=== PATIENT | female | born 1960 | race American Indian/Alaskan Native ===

== ENCOUNTER 2017-06-04 16:33 | Emergency (ER) | payer BC ==
[2017-06-04 16:41] VITALS: BP 171/91
--- NOTE | 2017-06-04 18:39 | Emergency Department Report ---
Eye Injury/Foreign Body - HPI Eye Location: Left Eye Symptoms: Eye Pain: Yes, Blurred Vision: No, Eye Redness: Yes, Grinding/ Hammering Metal: No, Used Eye Protection: No, Contact Lens Use: No, Recalls Injury: No, Photophobia: No Other History: 56-year-old female past medical history diabetes presents with complaint of about 1 week+ of stye to left eye. Patient denies any significant eye discharge but does state that she has slight discomfort at lid. Started using warm compresses. Patient denies any significant blurry vision headache fevers chills or significant discharge from eye. ED Review of Systems ROS: Stated complaint: STYE L EYE POSS INFECTION Other details as noted in HPI Constitutional: denies: chills, fever Eyes: eye pain (left lower eyelid swelling). denies: eye discharge, vision change ENT: denies: ear pain, throat pain Respiratory: denies: cough, shortness of breath, wheezing Cardiovascular: denies: chest pain, palpitations Endocrine: no symptoms reported Gastrointestinal: denies: abdominal pain, nausea, diarrhea Genitourinary: denies: urgency, dysuria, discharge Musculoskeletal: denies: back pain, joint swelling, arthralgia Skin: denies: rash, lesions Neurological: denies: headache, weakness, paresthesias Psychiatric: denies: anxiety, depression Hematological/Lymphatic: denies: easy bleeding, easy bruising ED Past Medical Hx - Past Medical History Hx Hypertension: Yes Hx Diabetes: Yes Hx Arthritis: Yes Hx Asthma: Yes Additional medical history: high cholesterol. bulging disc L4 & L5. degenerative disc disease - Surgical History Additional Surgical History: right and left knee surgery - Social History Smoking Status: Never Smoker Substance Use Type: None - Medications Home Medications: Home Medications Medication Instructions Recorded Confirmed Last Taken Type Acetaminophen/Codeine [Tylenol #3] 1 tab PO Q6H PRN #20 tab 10/06/15 Unknown Rx Erythromycin [Erythromycin Ophth 1 applic OP QID #1 tube 06/04/17 Unknown Rx Oint] Naproxen 500 mg PO BID PRN #30 tablet 06/04/17 Unknown Rx Eye Injury Exam - Exam General: Vital signs noted. No distress. Alert and acting appropriately. - Visual Acuity Bilateral Vision Acuity Degree: 20/30 Eye Exam: Left Injection, Left Chemosis, Neither EOMI, Neither Fluorescein Uptake Exam: Vision 20/30 bilaterally, left eye 20/30, right eye 20/25 ED Course Vital Signs 06/04/17 16:39 Temperature 98.4 F Pulse Rate 90 Respiratory 18 Rate Blood Pressure 171/91 O2 Sat by Pulse 99 Oximetry ED Medical Decision Making - Medical Decision Making A/P: Hordeolum left eye lower lid 1-erythromycin ointment, Motrin when necessary 2-follow-up with ophthalmology patient given referrals 3-vision is clinically intact on exam 4-artificial tears Critical care attestation.: If time is entered above; I have spent that time in minutes in the direct care of this critically ill patient, excluding procedure time. ED Disposition Clinical Impression: Hordeolum internum left lower eyelid Disposition: TO HOME OR SELFCARE Is pt being admited?: No Does the pt Need Aspirin: No Condition: Stable Instructions: Esther (ED) Prescriptions: Erythromycin [Erythromycin Ophth Oint] 1 applic OP QID #1 tube Naproxen 500 mg PO BID PRN #30 tablet PRN Reason: Pain Referrals: NEREIDA MIMS MD [Staff Physician] - 3-5 Days MING SMITH MD [Staff Physician] - 3-5 Days Time of Disposition: 18:36
== END 2017-06-04 18:50 | disposition home or self-care (01) ==
LOC: ED 16:33
DX: H00.015 Hordeolum externum left lower eyelid (principal); I10 Essential (primary) hypertension; E11.9 Type 2 diabetes mellitus without complications; M19.90 Unspecified osteoarthritis, unspecified site
CPT/HCPCS: 99282

== ENCOUNTER 2017-08-28 14:44 | Outpatient (CLI) | payer BC ==
--- NOTE | 2017-08-29 08:02 | Magnetic Resonance Report ---
MRI UPPER EXTREMITY JOINT LEFT WITHOUT CONTRAST HISTORY: Pain in left shoulder. TECHNIQUE: Multiple T1 and T2-weighted images with and without fat suppression. No IV gadolinium was administered. COMPARISON: None at this facility. FINDINGS: The bone marrow signal is within normal limits. There is no evidence for fracture or or bone lesion. Mild to moderate hypertrophic osteoarthritic changes are identified at the acromioclavicular joint. Impingement could be considered. Severe tendinopathy, or more likely a longitudinal tear, is identified in the intra-articular portion of the long head of the biceps tendon. No evidence for rupture. The longitudinal tear extends to the junction of the tendon on the superior labrum. There is suggestion of a type IV SLAP lesion on series 5, image 12. The remainder of the labrum is unremarkable. The insertion of the infraspinatus tendon on the proximal humerus is abnormal with fluid signal present. This appears to represent a greater than 50% thickness articular surface tear at the insertion site on the proximal humerus. There may be a pin hole full-thickness component to this defect. This is best demonstrated on series 5, images 6-7. There is mild thickening and increased intrinsic signal in the distal supraspinatus tendon and distal subscapularis tendon consistent with mild tendinosis. No tear is identified. The teres minor is normal. There is a small joint effusion with trace fluid in the tendon sheath of the biceps tendon and subacromial/subdeltoid bursa. IMPRESSION: Longitudinal tear in the horizontal portion of the biceps tendon. Question type IV SLAP lesion. Greater than 50% thickness tear in the distal infraspinatus tendon at its insertion site. I suspect there is a pin hole full-thickness component to this tear. Mild tendinosis of the distal supraspinatus and subscapularis tendons. Acromioclavicular osteoarthritis. Small joint effusion and bursal fluid.
== END 2017-08-28 14:45 | disposition home or self-care (01) ==
LOC: MRI 14:44
PROVIDERS: ATTEND Orthopaedic Surgery
DX: S46.912A Strain of unspecified muscle, fascia and tendon at shoulder and upper arm level, left arm, initial encounter (principal); M75.102 Unspecified rotator cuff tear or rupture of left shoulder, not specified as traumatic; M19.012 Primary osteoarthritis, left shoulder; M75.42 Impingement syndrome of left shoulder; M75.82 Other shoulder lesions, left shoulder; X58.XXXA Exposure to other specified factors, initial encounter; Y93.89 Activity, other specified; Y92.89 Other specified places as the place of occurrence of the external cause; Y99.8 Other external cause status

== ENCOUNTER 2017-10-06 07:36 | Outpatient (CLI) | payer BC ==
[2017-10-06 08:08] LABS: Alanine Aminotransferase 15 units/L (7-56); Albumin 4.4 g/dL (3.9-5); BUN/Creatinine Ratio 24; Blood Urea Nitrogen 12 mg/dL (7-17); Hemolysis Index 2
[2017-10-06 08:28] LABS: Basophils # (Auto) 0.1 K/mm3 (0.0-0.1); Basophils % (Auto) 0.5 % (0.0-1.8); Eosinophils # (Auto) 0.2 K/mm3 (0.0-0.4); Eosinophils % (Auto) 1.2 % (0.0-4.3); Hemoglobin 12.5 gm/dl (10.1-14.3); Lymphocytes # (Auto) 3.9 K/mm3 (1.2-5.4); Lymphocytes % (Auto) 31.7 % (13.4-35.0); Mean Corpuscular HGB Conc 32 % (30-34); Mean Corpuscular Hemoglobin 26 pg (28-32); Mean Corpuscular Volume 80 fl (79-97); Monocytes # (Auto) 0.5 K/mm3 (0.0-0.8); Monocytes % (Auto) 3.9 % (0.0-7.3); Platelet Count 364 K/mm3 (140-440); Red Cell Distribution Width 15.8 % (13.2-15.2)
== END 2017-10-06 07:37 | disposition home or self-care (01) ==
LOC: LAB 07:36
PROVIDERS: ATTEND Internal Medicine
DX: E11.618 Type 2 diabetes mellitus with other diabetic arthropathy (principal); E11.65 Type 2 diabetes mellitus with hyperglycemia; I10 Essential (primary) hypertension; J45.909 Unspecified asthma, uncomplicated
CPT/HCPCS: 36415; 80053; 83036; 85025

== ENCOUNTER 2017-10-09 08:48 | Outpatient (CLI) | payer BC | END 2017-10-09 08:49 | disposition home or self-care (01) | LOC: CARD 08:48 | PROVIDERS: ATTEND Orthopaedic Surgery | DX: Z01.818 Encounter for other preprocedural examination (principal) | CPT/HCPCS: 93005; 93010 ==

== ENCOUNTER 2017-10-18 09:22 | Day surgery (SDC) | payer BC ==
[~2017-10-18 09:22] MED LIST: ANCEF/STERILE WATER 2 GM/20 ML IV NR; DEPO-MEDROL INTRA-ARTI ONE; MARCAINE 0.25% INFILTRATI ONE
[2017-10-18] MEDS ORDERED: NACL BACTERIOSTATIC INFILTRATI ONE (09:56)
[2017-10-18] MEDS ORDERED: DIPRIVAN 10 MG/ML IV ONE (10:00)
[2017-10-18] MEDS ORDERED: SUBLIMAZE ONE (10:01)
[2017-10-18] MEDS ORDERED: VERSED ONE (10:06)
[2017-10-18] MEDS ORDERED: NACL 0.9% 1000 ML 1,000 ML ONE ×2 (10:08→12:49)
[2017-10-18] MEDS ORDERED: DECADRON IV NR (10:16)
--- NOTE | 2017-10-18 10:29 | Anesthesia Consultation ---
Anesthesia Consult and Med Hx Date of service: 10/18/17 - Airway Anesthetic Teeth Evaluation: Good ROM Head & Neck: Adequate Mental/Hyoid Distance: Adequate Mallampati Class: Class II Intubation Access Assessment: Good - Cardiac Exam Cardiac Exam: RRR - Pre-Operative Health Status ASA Pre-Surgery Classification: ASA2 Proposed Anesthetic Plan: General - Pulmonary Hx Smoking: No Hx Asthma: Yes (NO MEDS) Hx Sleep Apnea: No (VOLODYMYR PRE SCREEN HIGH RISK) - Cardiovascular System Hx Hypertension: Yes (X 20 YRS) Hx Coronary Artery Disease: No Hx Heart Attack/AMI: No Hx Angina: No Hx Cardia Arrhythmia: No Hx Pacemaker: No Hx Internal Defibrillator: No Hx Valvular Heart Disease: No Hx Heart Murmur: No Hx Peripheral Vascular Disease: No - Central Nervous System Hx Back Pain: Yes (NECK AND BACK PAIN) - Other Systems Hx Cancer: No
[2017-10-18] MEDS ORDERED: NEURONTIN ONE (10:31)
--- NOTE | 2017-10-18 10:31 | Anesthesia Day of Surgery ---
Anesthesia Day of Surgery - Day of Surgery Patient Examined: Yes Patient H&P Reviewed: Yes Patient is NPO: Yes Cardiac Clearance: Yes Pulmonary Clearance: Yes Osito's Test: N/A
--- NOTE | 2017-10-18 10:33 | Progress Note ---
Subjective Date of service: 10/18/17 Principal diagnosis: torn rotator cuff Objective - Labs Labs: Abnormal lab results 10/18/17 Range/Units 10:10 POC Glucose 153 H (70-105)
[2017-10-18] MEDS ORDERED: DILAUDID IV PRN (10:34)
--- NOTE | 2017-10-18 10:34 | Anesthesia Consultation ---
Anesthesia Consult and Med Hx Date of service: 10/18/17 (npo/no anesthesia problems) - Airway Anesthetic Teeth Evaluation: Good ROM Head & Neck: Adequate Mental/Hyoid Distance: Adequate Mallampati Class: Class III - Pulmonary Exam CTA: Yes - Cardiac Exam Cardiac Exam: RRR - Pre-Operative Health Status ASA Pre-Surgery Classification: ASA1 Proposed Anesthetic Plan: General, None Nerve Block: IS - Pulmonary Hx Smoking: No Hx Asthma: Yes (NO MEDS) Hx Respiratory Symptoms: No SOB: No COPD: No Home Oxygen Therapy: No Hx Pneumonia: No Hx Sleep Apnea: No (VOLODYMYR PRE SCREEN HIGH RISK) - Cardiovascular System Hx Hypertension: Yes (X 20 YRS) Hx Coronary Artery Disease: No Hx Heart Attack/AMI: No Hx Angina: No Hx Cardia Arrhythmia: No Hx Pacemaker: No Hx Internal Defibrillator: No Hx Valvular Heart Disease: No Hx Heart Murmur: No Hx Peripheral Vascular Disease: No - Central Nervous System Hx Back Pain: Yes (NECK AND BACK PAIN) - Gastrointestinal Hx Ulcer: No Hx Gastroesophageal Reflux Disease: No - Endocrine Hx Renal Disease: No Hx End Stage Renal Disease: No Hx Cirrhosis: No Hx Liver Disease: No Hx Insulin Dependent Diabetes: Yes Hx Non-Insulin Dependent Diabetes: No (took 15unuits humalog at 4am) Hx Thyroid Disease: No Hx Hypothyroidism: No Hx Hyperthyroidism: No - Hematic Hx Anemia: No Hx Sickle Cell Disease: No - Other Systems Hx Alcohol Use: No Hx Cancer: No Hx Obesity: Yes - Additional Comments Anesthesia Medical History Comments: npo post midnight
[2017-10-18] MEDS ORDERED: NEURONTIN PO NR (10:35)
[2017-10-18] MEDS ORDERED: DEPO-MEDROL ONE (10:56)
[2017-10-18] MEDS ORDERED: MARCAINE 0.5% INFILTRATI ONE ×2 (10:56→11:00)
[2017-10-18] MEDS ORDERED: ADRENALIN ONE (10:56)
[2017-10-18] MEDS ORDERED: PEPCID IV NR (11:00)
[2017-10-18] MEDS ORDERED: VERSED IV NR (11:00)
[2017-10-18] MEDS ORDERED: NACL 0.9% 1000 ML 1,000 ML IV SCH (11:00)
[2017-10-18] MEDS ORDERED: MARCAINE 0.25% INFILTRATI ONE ×2 (11:41→14:20)
[2017-10-18] MEDS ORDERED: NEO SYNEPHRINE/NS Syringe(OR USE) IV ONE (12:41)
[2017-10-18] MEDS ORDERED: NACL 0.9% 100 ML ONE (12:45)
[2017-10-18] MEDS ORDERED: ZEMURON IV ONE ×2 (12:47→13:09)
[2017-10-18] MEDS ORDERED: NEOSTIGMINE ONE (12:47)
[2017-10-18] MEDS ORDERED: ROBINUL ONE (12:47)
[2017-10-18] MEDS ORDERED: NEO SYNEPHRINE ONE (12:47)
[2017-10-18] MEDS ORDERED: BREVIBLOC IV ONE (12:58)
[2017-10-18] MEDS ORDERED: XYLOCAINE MPF 2% ONE (13:00)
[2017-10-18] MEDS ORDERED: ADRENALIN IV ONE (13:03)
[2017-10-18] MEDS ORDERED: ZOFRAN ONE (13:09)
[2017-10-18] MEDS ORDERED: DILAUDID ONE (13:23)
[2017-10-18] MEDS ORDERED: PERCOCET 5/325 PO ONE (16:11)
--- NOTE | 2017-10-18 17:18 | XRay Report ---
FINAL REPORT EXAM: XR SHOULDER 2+V LT HISTORY: preop TECHNIQUE: 2 views left shoulder PRIORS: None. FINDINGS: No fractures are identified. No dislocation seen. The acromioclavicular joint is intact. There is an inferior distal acromial osteophyte adjacent bony and soft tissue structures are unremarkable. IMPRESSION: Distal acromial osteophyte which could contribute to a clinical impingement syndrome
[2017-10-18 17:59] VITALS: BP 131/73
[2017-10-18] MEDS ORDERED: NEURONTIN PO SCH (18:00)
--- NOTE | 2017-10-19 01:46 | Operative Report ---
PREOPERATIVE DIAGNOSES: Left shoulder with impingement, bursitis, partial thickness rotator cuff tear, biceps tendon possible tear or superior labrum anterior and posterior lesion. POSTOPERATIVE DIAGNOSES: 1. Left shoulder with marked subacromial impingement bursitis. 2. Arthrofibrosis. 3. Synovitis. 4. Anterior and superior labral fraying. 5. Minimal longitudinal tear, biceps tendon. 6. Mild rotator cuff attenuation. PROCEDURE PERFORMED: 1. Left shoulder arthroscopy with arthroscopic subacromial bursectomy and decompression. 2. Arthroscopic lysis of adhesions. 3. Arthroscopic debridement of the anterior and superior labral tear. 4. Arthroscopic limited synovectomy. SURGEON: Maurisio Torres M.D. CUSTOMS COMPLIANCE DIRECTOR: Dewayne Short CSA. ANESTHESIA: General plus a scalene block. ESTIMATED BLOOD LOSS: Minimal. COMPLICATIONS: None. OPERATIVE PROCEDURE: The patient underwent successful anesthesia. Exam demonstrates she had terminal limitation approximately 20 degrees of forward elevation and external rotation to ____ position. Gentle manipulation allowed for improvement of this. She was carefully positioned in the beach chair position and prepped and draped in the usual fashion. Arthroscopy was carried out in the standard posterior portal. Entry made through the triangular space under direct vision. Systematic exam of the joint was carried out. This demonstrated synovitis noted primarily in the interval region, which was debrided. The articular surface relatively well preserved. The subscapularis was intact. Supraspinatus was intact. Infraspinatus was intact and teres minor. Visualization was carried out both portals. Debridement of the anterior and superior labrum was gently performed as well. She had some limited debridement of the capsule noted as well with a limited lysis, especially in the interval region. She had full range of motion with this forward elevation and external rotation in the adducted and abducted position. At this point in time, the arthroscope was placed in the subacromial space of the posterior portal. It did have a marked subacromial bursitis and a type 3 acromion. Through a straight lateral portal decompression was affected with the cutting block technique to achieve an excellent flush surface. The outer surface of the cuff demonstrated bridging bursal scarring, which was debrided thoroughly especially posteriorly. The rotator cuff with the exception of mild attenuation had demonstrated no significant tearing. Intraoperative photos were obtained for documentation. The arthroscopic instruments were removed, ports were closed with nylon sutures. Steri-Strips were applied. The patient was taken to the recovery room in satisfactory condition having tolerated the procedure well. JOB# [id number] GONZALEZ/ROIBNSON
== END 2017-10-18 17:25 | disposition home or self-care (01) ==
LOC: OR 09:22
PROVIDERS: ATTEND Orthopaedic Surgery
DX: M75.42 Impingement syndrome of left shoulder (principal); M75.112 Incomplete rotator cuff tear or rupture of left shoulder, not specified as traumatic; M24.612 Ankylosis, left shoulder; M71.9 Bursopathy, unspecified; J45.909 Unspecified asthma, uncomplicated; I10 Essential (primary) hypertension; Z79.899 Other long term (current) drug therapy
CPT/HCPCS: 29822; 73030; 82962; J0171; J0690; J1100; J1170; J2250; J2370; J2405; J2704; J2710; J3010; J7030; J1030

== ENCOUNTER 2018-04-09 08:49 | Outpatient (CLI) | payer BC ==
[2018-04-09 09:08] LABS: Basophils % (Auto) 0.3 % (0.0-1.8); Eosinophils # (Auto) 0.1 K/mm3 (0.0-0.4); Eosinophils % (Auto) 0.4 % (0.0-4.3); Hematocrit 39.9 % (30.3-42.9); Lymphocytes # (Auto) 2.8 K/mm3 (1.2-5.4); Lymphocytes % (Auto) 22.7 % (13.4-35.0); Mean Corpuscular HGB Conc 33 % (30-34); Mean Corpuscular Hemoglobin 26 pg (28-32); Mean Corpuscular Volume 80 fl (79-97); Monocytes # (Auto) 0.5 K/mm3 (0.0-0.8); Monocytes % (Auto) 3.8 % (0.0-7.3); Platelet Count 380 K/mm3 (140-440); Red Blood Count 4.98 M/mm3 (3.65-5.03); Red Cell Distribution Width 16.1 % (13.2-15.2)
[2018-04-09 09:32] LABS: Alanine Aminotransferase 13 units/L (7-56); Albumin 4.8 g/dL (3.9-5); BUN/Creatinine Ratio 20; Blood Urea Nitrogen 10 mg/dL (7-17); Calcium 10.2 mg/dL (8.4-10.2); Chol/HDL Ratio 3.36 %; HDL Cholesterol 44 mg/dL (40-59); Hemolysis Index 1; LDL Cholesterol,Direct 90 mg/dL (50-130)
== END 2018-04-09 08:50 | disposition home or self-care (01) ==
LOC: LAB 08:49
PROVIDERS: ATTEND Internal Medicine
DX: E11.618 Type 2 diabetes mellitus with other diabetic arthropathy (principal); E78.5 Hyperlipidemia, unspecified; I10 Essential (primary) hypertension; E78.00 Pure hypercholesterolemia, unspecified; E66.9 Obesity, unspecified; Z86.73 Personal history of transient ischemic attack (TIA), and cerebral infarction without residual deficits
CPT/HCPCS: 36415; 80053; 80061; 83036; 85025

== ENCOUNTER 2018-11-13 10:38 | Outpatient (CLI) | payer BC ==
[2018-11-13 11:21] LABS: Alanine Aminotransferase 18 units/L (7-56); Albumin 4.5 g/dL (3.9-5); BUN/Creatinine Ratio 24; Blood Urea Nitrogen 12 mg/dL (7-17); Calcium 10.3 mg/dL (8.4-10.2); Chol/HDL Ratio 3.35 %; HDL Cholesterol 48 mg/dL (40-59); Hemolysis Index 13; LDL Cholesterol,Direct 108 mg/dL (50-130)
[2018-11-13 13:33] LABS: Creatinine,Urine 32.6 mg/dL (0.1-20.0); Microalbumin/Creatinine Ratio 211.6 ug/mg
== END 2018-11-13 10:39 | disposition home or self-care (01) ==
LOC: LAB 10:38
PROVIDERS: ATTEND Internal Medicine
DX: E11.618 Type 2 diabetes mellitus with other diabetic arthropathy (principal); I10 Essential (primary) hypertension; E78.5 Hyperlipidemia, unspecified; E78.00 Pure hypercholesterolemia, unspecified
CPT/HCPCS: 36415; 80053; 80061; 82043; 83036

== ENCOUNTER 2019-04-10 08:55 | Outpatient (CLI) | payer BC ==
[2019-04-10 09:31] LABS: Alanine Aminotransferase 19 units/L (7-56); Albumin 4.7 g/dL (3.9-5); BUN/Creatinine Ratio 25; Blood Urea Nitrogen 15 mg/dL (7-17); Calcium 10.4 mg/dL (8.4-10.2); Chol/HDL Ratio 2.63 %; HDL Cholesterol 55 mg/dL (40-59); Hemolysis Index 17; LDL Cholesterol,Direct 83 mg/dL (50-130)
== END 2019-04-10 08:56 | disposition home or self-care (01) ==
LOC: LAB 08:55
PROVIDERS: ATTEND Internal Medicine
DX: E11.618 Type 2 diabetes mellitus with other diabetic arthropathy (principal); I10 Essential (primary) hypertension; E78.5 Hyperlipidemia, unspecified
CPT/HCPCS: 36415; 80053; 80061; 83036

== ENCOUNTER 2019-06-11 16:53 | Emergency (ER) | payer BC ==
[2019-06-11 16:59] VITALS: BP 144/85
--- NOTE | 2019-06-11 17:02 | Event Note ---
ED Screening Note Date of service: 06/11/19 Time: 16:58 ED Screening Note: This is a 58 y.o. F. that presents to the ER with right shoulder pain and laceration to right eyebrow. Patient states she fell at home around 1600 today. PMH CVA with right sided weakness, HTN, and DM. This initial assessment/diagnostic orders/clinical plan/treatment(s) is/are subject to change based on patients health status, clinical progression and re- assessment by fellow clinical providers in the ED. Further treatment and workup at subsequent clinical providers discretion. Patient/guardian urged not to elope from the ED as their condition may be serious if not clinically assessed and managed. Initial orders include: XR right shoulder
--- NOTE | 2019-06-11 17:15 | Emergency Department Report ---
ED General Adult HPI - General Chief complaint: Fall Stated complaint: FALL INJURY/RT SIDE PAIN Time Seen by Provider: 06/11/19 16:57 Source: patient Mode of arrival: Ambulatory Limitations: No Limitations - History of Present Illness Initial comments: 58 YO COMES TO ER SP JOSE JUAN THIS AM MECHANICAL IN [place] CO R SHOULDER PAIN NO OTHER INJURY DENIES LOC AMBULATORY PREVIOUS CVA WITH R SIDE RESIDUAL WEAKNESS -: Sudden, hour(s) Associated Symptoms: denies other symptoms Treatments Prior to Arrival: none - Related Data Home Medications Medication Instructions Recorded Confirmed Last Taken Aspirin [Lo-Dose Aspirin EC] 81 mg PO DAILY 10/10/17 11/21/17 10/04/17 Lispro Insulin [HumaLOG] 15 unit SQ BID 10/10/17 11/21/17 10/17/17 16:00 15 units Metformin HCl [Glucophage] 1,000 mg PO BID 10/10/17 11/21/17 10/17/17 amLODIPine 10 mg PO DAILY 10/10/17 11/21/17 10/18/17 07:00 Empagliflozin [Jardiance] 25 mg PO QDAY 10/18/17 11/21/17 10/17/17 Fluticasone [Flonase] 1 spray NS QDAY 10/18/17 11/21/17 10/18/17 10:30 Previous Rx's Medication Instructions Recorded Last Taken Type AtorvaSTATin [Lipitor] 40 mg PO QHS tablet 11/28/17 Unknown Rx Cyclobenzaprine [Flexeril] 10 mg PO TID PRN #10 tablet 06/11/19 Unknown Rx predniSONE [Deltasone] 20 mg PO DAILY #5 tablet 06/11/19 Unknown Rx traMADoL [Ultram] 50 mg PO Q6HR PRN #10 tablet 06/11/19 Unknown Rx Allergies Allergy/AdvReac Type Severity Reaction Status Date / Time No Known Allergies Allergy Verified 06/04/17 16:39 ED Review of Systems ROS: Stated complaint: FALL INJURY/RT SIDE PAIN Other details as noted in HPI Comment: All other systems reviewed and negative ED Past Medical Hx - Past Medical History Previous Medical History?: Yes Hx Hypertension: Yes Hx CVA: Yes Hx Heart Attack/AMI: No Hx Congestive Heart Failure: No Hx Diabetes: Yes Hx Deep Vein Thrombosis: No Hx Pulmonary Embolism: No Hx GERD: No Hx Liver Disease: No Hx Renal Disease: No Hx of Cancer: No Hx Sickle Cell Disease: No Hx Arthritis: No Hx Headaches / Migraines: No Hx Seizures: No Hx Kidney Stones: No Hx Psychiatric Treatment: No Hx Asthma: No Hx COPD: No Hx Tuberculosis: No Hx Dementia: No Hx HIV: No Additional medical history: high cholesterol. bulging disc L4 & L5. degenerative disc disease - Surgical History Past Surgical History?: Yes Hx Pacemaker: No Hx Internal Defibrillator: No Additional Surgical History: right and left knee surgery - Family History Family history: no significant - Social History Smoking Status: Never Smoker Substance Use Type: None - Medications Home Medications: Home Medications Medication Instructions Recorded Confirmed Last Taken Type Aspirin [Lo-Dose Aspirin EC] 81 mg PO DAILY 10/10/17 11/21/17 10/04/17 History Lispro Insulin [HumaLOG] 15 unit SQ BID 10/10/17 11/21/17 10/17/17 16:00 History 15 units Metformin HCl [Glucophage] 1,000 mg PO BID 10/10/17 11/21/17 10/17/17 History amLODIPine 10 mg PO DAILY 10/10/17 11/21/17 10/18/17 07:00 History Empagliflozin [Jardiance] 25 mg PO QDAY 10/18/17 11/21/17 10/17/17 History Fluticasone [Flonase] 1 spray NS QDAY 10/18/17 11/21/17 10/18/17 10:30 History AtorvaSTATin [Lipitor] 40 mg PO QHS tablet 11/28/17 Unknown Rx Cyclobenzaprine [Flexeril] 10 mg PO TID PRN #10 tablet 06/11/19 Unknown Rx predniSONE [Deltasone] 20 mg PO DAILY #5 tablet 06/11/19 Unknown Rx traMADoL [Ultram] 50 mg PO Q6HR PRN #10 tablet 06/11/19 Unknown Rx ED Physical Exam - General Limitations: No Limitations General appearance: alert, in no apparent distress - Head Head exam: Present: atraumatic, normocephalic - Eye Eye exam: Present: normal appearance - ENT ENT exam: Present: mucous membranes moist - Neck Neck exam: Present: normal inspection - Respiratory Respiratory exam: Present: normal lung sounds bilaterally. Absent: respiratory distress - Cardiovascular Cardiovascular Exam: Present: regular rate, normal rhythm. Absent: systolic murmur, diastolic murmur, rubs, gallop - GI/Abdominal GI/Abdominal exam: Present: soft, normal bowel sounds - Extremities Exam Extremities exam: Present: normal inspection - Back Exam Back exam: Present: normal inspection - Neurological Exam Neurological exam: Present: alert, oriented X3 - Psychiatric Psychiatric exam: Present: normal affect, normal mood - Skin Skin exam: Present: warm, dry, intact, normal color. Absent: rash ED Course Vital Signs 06/11/19 06/11/19 16:56 16:57 Temperature 98.5 F Pulse Rate 82 78 Respiratory 18 Rate Blood Pressure 144/85 O2 Sat by Pulse 97 100 Oximetry ED Medical Decision Making - Radiology Data Radiology results: report reviewed, image reviewed - Medical Decision Making SP GLF MECHANICAL THIS AM XRAY NEG FOR FX MEDICATED IN ER DC HOME WITH FAMILY AND PCP FOLLOW UP IN 48 HOURS Vital Signs 06/11/19 06/11/19 16:56 16:57 Temperature 98.5 F Pulse Rate 82 78 Respiratory 18 Rate Blood Pressure 144/85 O2 Sat by Pulse 97 100 Oximetry - Differential Diagnosis RO SHOULDER FRACTURE Critical care attestation.: If time is entered above; I have spent that time in minutes in the direct care of this critically ill patient, excluding procedure time. ED Disposition Clinical Impression: Fall, Contusion, History of CVA (cerebrovascular accident) Disposition: DC-01 TO HOME OR SELFCARE Is pt being admited?: No Does the pt Need Aspirin: No Condition: Stable Instructions: Contusion in Adults (ED) Additional Instructions: REST WARM COMPRESSES MEDS ORDERED FOLLOW UP WITH DR ETIENNE ODEN MD OR PCP IN 48 HOURS FOR RECHECK Prescriptions: predniSONE [Deltasone] 20 mg PO DAILY #5 tablet Cyclobenzaprine [Flexeril] 10 mg PO TID PRN #10 tablet PRN Reason: Muscle Spasm traMADoL [Ultram] 50 mg PO Q6HR PRN #10 tablet PRN Reason: Pain Referrals: NEREIDA NATARAJAN MD [Staff Physician] - 3-5 Days Time of Disposition: 17:14
--- NOTE | 2019-06-11 17:41 | XRay Report ---
RIGHT SHOULDER 3 VIEWS INDICATION / CLINICAL INFORMATION: pain, s/p fall COMPARISON: None available. FINDINGS: BONES / JOINT(S): No acute fracture or subluxation. Mild DJD at the AC joint. SOFT TISSUES: No significant abnormality. ADDITIONAL FINDINGS: None. Signer Name: Cory Tejada MD Signed: 06/11/2019 5:37 PM Workstation Name: [id number]
[2019-06-11] MEDS ORDERED: KETOROLAC 60 MG/2 ML INJ IM ONE (17:59)
[2019-06-11] MEDS ORDERED: HYDROcodone/ACETAMINOPHEN 5-325 MG TAB PO ONE (17:59)
== END 2019-06-11 18:21 | disposition home or self-care (01) ==
LOC: ED 16:53
DX: S40.011A Contusion of right shoulder, initial encounter (principal); I10 Essential (primary) hypertension; E11.9 Type 2 diabetes mellitus without complications; E78.00 Pure hypercholesterolemia, unspecified; Z98.890 Other specified postprocedural states; Z79.899 Other long term (current) drug therapy; Z86.73 Personal history of transient ischemic attack (TIA), and cerebral infarction without residual deficits; W19.XXXA Unspecified fall, initial encounter; Y93.89 Activity, other specified; Y92.89 Other specified places as the place of occurrence of the external cause; Y99.8 Other external cause status
CPT/HCPCS: 73030; 96372; 99283; J1885

== ENCOUNTER 2019-07-19 22:06 | Emergency (ER) | payer SELFPAY ==
[2019-07-19 22:28] VITALS: BP 146/83
--- NOTE | 2019-07-20 02:24 | Emergency Department Report ---
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 Patient has a history of hypertension diabetes has been out of her medication for the last 2 days. Patient's denies chest pain shortness of breath focal neurological deficits urinary frequency or dysuria. Patient's blood glucose was 241 prior to arrival and her blood pressure was 160 systolic. - Related Data Home Medications Medication Instructions Recorded Confirmed Last Taken Aspirin [Lo-Dose Aspirin EC] 81 mg PO DAILY 10/10/17 11/21/17 10/04/17 Lispro Insulin [HumaLOG] 15 unit SQ BID 10/10/17 11/21/17 10/17/17 16:00 15 units Fluticasone [Flonase] 1 spray NS QDAY 10/18/17 11/21/17 10/18/17 10:30 Previous Rx's Medication Instructions Recorded Last Taken Type Cyclobenzaprine [Flexeril] 10 mg PO TID PRN #10 tablet 06/11/19 Unknown Rx predniSONE [Deltasone] 20 mg PO DAILY #5 tablet 06/11/19 Unknown Rx traMADoL [Ultram] 50 mg PO Q6HR PRN #10 tablet 06/11/19 Unknown Rx AtorvaSTATin [Lipitor] 40 mg PO QHS #30 tablet 07/20/19 Unknown Rx Empagliflozin [Jardiance] 25 mg PO QDAY #30 07/20/19 Unknown Rx Metformin HCl [Glucophage] 1,000 mg PO BID #60 07/20/19 Unknown Rx amLODIPine 10 mg PO DAILY #30 07/20/19 Unknown Rx Allergies Allergy/AdvReac Type Severity Reaction Status Date / Time No Known Allergies Allergy Verified 06/04/17 16:39 ED Review of Systems ROS: Stated complaint: ELEVATED BLOOD PRESSURE AND BLOOD SUGAR Other details as noted in HPI Comment: All other systems reviewed and negative ED Past Medical Hx - Past Medical History Hx Hypertension: Yes Hx CVA: Yes Hx Heart Attack/AMI: No Hx Congestive Heart Failure: No Hx Diabetes: Yes Hx Deep Vein Thrombosis: No Hx Pulmonary Embolism: No Hx GERD: No Hx Liver Disease: No Hx Renal Disease: No Hx Sickle Cell Disease: No Hx Arthritis: No Hx Headaches / Migraines: No Hx Seizures: No Hx Kidney Stones: No Hx Psychiatric Treatment: No Hx Asthma: No Hx COPD: No Hx Tuberculosis: No Hx Dementia: No Hx HIV: No Additional medical history: high cholesterol. bulging disc L4 & L5. degenerative disc disease - Surgical History Past Surgical History?: Yes Hx Pacemaker: No Hx Internal Defibrillator: No Additional Surgical History: right and left knee surgery - Social History Smoking Status: Never Smoker Substance Use Type: None - Medications Home Medications: Home Medications Medication Instructions Recorded Confirmed Last Taken Type Aspirin [Lo-Dose Aspirin EC] 81 mg PO DAILY 10/10/17 11/21/17 10/04/17 History Lispro Insulin [HumaLOG] 15 unit SQ BID 10/10/17 11/21/17 10/17/17 16:00 History 15 units Fluticasone [Flonase] 1 spray NS QDAY 10/18/17 11/21/17 10/18/17 10:30 History Cyclobenzaprine [Flexeril] 10 mg PO TID PRN #10 tablet 06/11/19 Unknown Rx predniSONE [Deltasone] 20 mg PO DAILY #5 tablet 06/11/19 Unknown Rx traMADoL [Ultram] 50 mg PO Q6HR PRN #10 tablet 06/11/19 Unknown Rx AtorvaSTATin [Lipitor] 40 mg PO QHS #30 tablet 07/20/19 Unknown Rx Empagliflozin [Jardiance] 25 mg PO QDAY #30 07/20/19 Unknown Rx Metformin HCl [Glucophage] 1,000 mg PO BID #60 07/20/19 Unknown Rx amLODIPine 10 mg PO DAILY #30 07/20/19 Unknown Rx ED Physical Exam - General Limitations: No Limitations General appearance: alert, in no apparent distress - Head Head exam: Present: atraumatic, normocephalic - Eye Eye exam: Present: normal appearance - ENT ENT exam: Present: mucous membranes moist - Neck Neck exam: Present: normal inspection - Respiratory Respiratory exam: Present: normal lung sounds bilaterally. Absent: respiratory distress - Cardiovascular Cardiovascular Exam: Present: regular rate, normal rhythm. Absent: systolic murmur, diastolic murmur, rubs, gallop - GI/Abdominal GI/Abdominal exam: Present: soft, normal bowel sounds - Extremities Exam Extremities exam: Present: normal inspection - Back Exam Back exam: Present: normal inspection - Neurological Exam Neurological exam: Present: alert, oriented X3 - Psychiatric Psychiatric exam: Present: normal affect, normal mood - Skin Skin exam: Present: warm, dry, intact, normal color. Absent: rash ED Course Vital Signs 07/19/19 22:26 Temperature 98.6 F Pulse Rate 77 Respiratory 12 Rate Blood Pressure 146/83 O2 Sat by Pulse 98 Oximetry Critical care attestation.: If time is entered above; I have spent that time in minutes in the direct care of this critically ill patient, excluding procedure time. 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 Prescriptions: AtorvaSTATin [Lipitor] 40 mg PO QHS #30 tablet amLODIPine 10 mg PO DAILY #30 Metformin HCl [Glucophage] 1,000 mg PO BID #60 Empagliflozin [Jardiance] 25 mg PO QDAY #30 Referrals: AMBER ROSENBAUM MD [Staff Physician] - 3-5 Days Time of Disposition: 02:24
== END 2019-07-20 02:35 | disposition home or self-care (01) ==
LOC: ED 22:06
DX: I10 Essential (primary) hypertension (principal); E11.9 Type 2 diabetes mellitus without complications; E78.00 Pure hypercholesterolemia, unspecified; Z76.0 Encounter for issue of repeat prescription; Z86.73 Personal history of transient ischemic attack (TIA), and cerebral infarction without residual deficits; Z79.899 Other long term (current) drug therapy
CPT/HCPCS: 82962; 99282

== ENCOUNTER 2019-08-01 13:14 | Outpatient (CLI) | payer OTHER ==
--- NOTE | 2019-08-01 16:02 | Mammography Report ---
DIGITAL SCREENING MAMMOGRAM WITH CAD, 08/01/2019 INDICATION: Routine screening mammography. TECHNIQUE: Digital bilateral 2D mammography was obtained in the craniocaudal and mediolateral obliq ue projections. This examination was interpreted with the benefit of Computer-Aided Detection analysi s. COMPARISON: 09/15/2016 FINDINGS: Breast Density: The breasts are almost entirely fatty. There is no evidence of dominant mass, suspicious calcifications or architectural distortion in eithe r breast. IMPRESSION: No mammographic evidence of malignancy. Follow up recommendation: Routine yearly BI-RADS Category 1: Negative. A "normal" or negative report should not discourage follow up or biopsy of a clinically significant f inding. A written summary of these findings will be mailed to the patient. The patient will be entered into a mammography reporting system which will generate a reminder letter for the patient's next appointmen t at the appropriate interval. The [employer] recommends yearly mammograms starting at age 40 and continuing as l kerri as a woman is in good health. Breast MRI is recommended for women with an approximate 20-25% or greater lifetime risk of breast cancer, including women with a strong family history of breast or ova elaine cancer or who have been treated for Hodgkin's disease. Signer Name: Jose Luis Douglas MD Signed: 08/01/2019 3:58 PM Workstation Name: [id number]
== END 2019-08-01 13:15 | disposition home or self-care (01) ==
LOC: MAMMO 13:14
PROVIDERS: ATTEND Internal Medicine
DX: Z12.31 Encounter for screening mammogram for malignant neoplasm of breast (principal); N64.89 Other specified disorders of breast
CPT/HCPCS: 77067

== ENCOUNTER 2019-11-03 20:11 | Emergency (ER) | payer OTHER ==
[2019-11-03] MEDS ORDERED: SODIUM CHLORIDE 0.9% 1000 ML 1,000 ML IV ONE ×3 (20:43→22:08)
[2019-11-03] MEDS ORDERED: FAMOTIDINE 20 MG/2 ML INJ IV ONE (20:43)
[2019-11-03] MEDS ORDERED: ONDANSETRON 4 MG/2 ML INJ IV ONE (20:43)
[2019-11-03 21:23] LABS: Basophils # (Auto) 0.2 K/mm3 (0.0-0.1); Eosinophils # (Auto) 0.2 K/mm3 (0.0-0.4); Eosinophils % (Auto) 1.5 % (0.0-4.3); Hematocrit 36.8 % (30.3-42.9); Hemoglobin 12.2 gm/dl (10.1-14.3); Lymphocytes # (Auto) 4.5 K/mm3 (1.2-5.4); Lymphocytes % (Auto) 38.8 % (13.4-35.0); Mean Corpuscular HGB Conc 33 % (30-34); Mean Corpuscular Volume 85 fl (79-97); Monocytes # (Auto) 0.6 K/mm3 (0.0-0.8); Monocytes % (Auto) 5.2 % (0.0-7.3); Platelet Count 403 K/mm3 (140-440); Red Blood Count 4.34 M/mm3 (3.65-5.03); Red Cell Distribution Width 15.2 % (13.2-15.2)
[2019-11-03 21:25] LABS: Calcium 10.4 mg/dL (8.4-10.2)
[2019-11-03 21:45] LABS: Bacteria,Urine 1+ /HPF (Negative); Bilirubin,Urine NEG (Negative); Blood,Urine NEG (Negative); Color,Urine Colorless (Yellow); Protein,Urine <15 mg/dL mg/dL (Negative); RBC,Urine < 1.0 /HPF (0.0-6.0); Urobilinogen,Urine < 2.0 mg/dL (<2.0)
[2019-11-03] MEDS ORDERED: INSULIN REGULAR, HUMAN 100 UNITS/1 ML IV ONE (22:08)
--- NOTE | 2019-11-03 23:33 | Emergency Department Report ---
ED General Adult HPI - General Chief complaint: Hyperglycemia Stated complaint: POSS STROKE Time Seen by Provider: 11/03/19 20:43 Source: patient Mode of arrival: Wheelchair Limitations: No Limitations - History of Present Illness Initial comments: Patient is a 59-year-old F [place] female who is complaining of elevated blood sugar. Patient states her Accu-Chek machine read high prior to arrival. Patient states that he has been out of 1 of her diabetes medication for approximately 1 to 2 weeks. Patient denies vomiting but states she has some mil d nausea and GERD-like's symptoms. Patient has had some urinary frequency and some mild fatigue and lightheadedness upon standing. She denies chest pain cough congestion fevers or chills. Patient states she does have a small scrape on the dorsum of her left foot which she believes also may be in the early stages of infection. Severity scale (0 -10): 0 - Related Data Home Medications Medication Instructions Recorded Confirmed Last Taken Aspirin [Lo-Dose Aspirin EC] 81 mg PO DAILY 10/10/17 11/21/17 10/04/17 Lispro Insulin [HumaLOG] 15 unit SQ BID 10/10/17 11/21/17 10/17/17 16:00 15 units Fluticasone [Flonase] 1 spray NS QDAY 10/18/17 11/21/17 10/18/17 10:30 Previous Rx's Medication Instructions Recorded Last Taken Type Cyclobenzaprine [Flexeril] 10 mg PO TID PRN #10 tablet 06/11/19 Unknown Rx predniSONE [Deltasone] 20 mg PO DAILY #5 tablet 06/11/19 Unknown Rx traMADoL [Ultram] 50 mg PO Q6HR PRN #10 tablet 06/11/19 Unknown Rx AtorvaSTATin [Lipitor] 40 mg PO QHS #30 tablet 07/20/19 Unknown Rx Empagliflozin [Jardiance] 25 mg PO QDAY #30 07/20/19 Unknown Rx Metformin HCl [Glucophage] 1,000 mg PO BID #60 07/20/19 Unknown Rx amLODIPine 10 mg PO DAILY #30 07/20/19 Unknown Rx Clindamycin [Clindamycin CAP] 300 mg PO Q8H #21 cap 11/03/19 Unknown Rx Dulaglutide [Trulicity] 0.75 mg SQ QWEEK #1 pen 11/03/19 Unknown Rx Allergies Allergy/AdvReac Type Severity Reaction Status Date / Time No Known Allergies Allergy Verified 06/04/17 16:39 ED Review of Systems ROS: Stated complaint: POSS STROKE Other details as noted in HPI Comment: All other systems reviewed and negative ED Past Medical Hx - Past Medical History Hx Hypertension: Yes Hx CVA: Yes Hx Heart Attack/AMI: No Hx Congestive Heart Failure: No Hx Diabetes: Yes Hx Deep Vein Thrombosis: No Hx Pulmonary Embolism: No Hx GERD: No Hx Liver Disease: No Hx Renal Disease: No Hx Sickle Cell Disease: No Hx Arthritis: No Hx Headaches / Migraines: No Hx Seizures: No Hx Kidney Stones: No Hx Psychiatric Treatment: No Hx Asthma: No Hx COPD: No Hx Tuberculosis: No Hx Dementia: No Hx HIV: No Additional medical history: high cholesterol. bulging disc L4 & L5. degenerative disc disease - Surgical History Hx Pacemaker: No Hx Internal Defibrillator: No Additional Surgical History: right and left knee surgery - Social History Smoking Status: Never Smoker Substance Use Type: None - Medications Home Medications: Home Medications Medication Instructions Recorded Confirmed Last Taken Type Aspirin [Lo-Dose Aspirin EC] 81 mg PO DAILY 10/10/17 11/21/17 10/04/17 History Lispro Insulin [HumaLOG] 15 unit SQ BID 10/10/17 11/21/17 10/17/17 16:00 History 15 units Fluticasone [Flonase] 1 spray NS QDAY 10/18/17 11/21/17 10/18/17 10:30 History Cyclobenzaprine [Flexeril] 10 mg PO TID PRN #10 tablet 06/11/19 Unknown Rx predniSONE [Deltasone] 20 mg PO DAILY #5 tablet 06/11/19 Unknown Rx traMADoL [Ultram] 50 mg PO Q6HR PRN #10 tablet 06/11/19 Unknown Rx AtorvaSTATin [Lipitor] 40 mg PO QHS #30 tablet 07/20/19 Unknown Rx Empagliflozin [Jardiance] 25 mg PO QDAY #30 07/20/19 Unknown Rx Metformin HCl [Glucophage] 1,000 mg PO BID #60 07/20/19 Unknown Rx amLODIPine 10 mg PO DAILY #30 07/20/19 Unknown Rx Clindamycin [Clindamycin CAP] 300 mg PO Q8H #21 cap 11/03/19 Unknown Rx Dulaglutide [Trulicity] 0.75 mg SQ QWEEK #1 pen 11/03/19 Unknown Rx ED Physical Exam - General Limitations: No Limitations General appearance: alert, in no apparent distress - Head Head exam: Present: atraumatic, normocephalic - Eye Eye exam: Present: normal appearance, PERRL, EOMI - ENT ENT exam: Present: normal orophraynx, mucous membranes moist - Neck Neck exam: Present: normal inspection - Respiratory Respiratory exam: Present: normal lung sounds bilaterally. Absent: respiratory distress, wheezes, rales, rhonchi - Cardiovascular Cardiovascular Exam: Present: regular rate, normal rhythm, normal heart sounds. Absent: systolic murmur, diastolic murmur, rubs, gallop - GI/Abdominal GI/Abdominal exam: Present: soft, normal bowel sounds. Absent: distended, tenderness, guarding, rebound - Extremities Exam Extremities exam: Present: normal inspection - Back Exam Back exam: Present: normal inspection - Neurological Exam Neurological exam: Present: alert, oriented X3 - Psychiatric Psychiatric exam: Present: normal affect, normal mood - Skin Skin exam: Present: warm, dry, intact, normal color, other (Patient with a small scab on the dorsum of the left foot approximately 1 cm in diameter. There is very mild erythema surrounding it. There is no evidence of any fluctuance and no purulent drainage at this time.). Absent: rash ED Course Vital Signs 11/03/19 11/03/19 20:27 22:23 Temperature 98.5 F 98.5 F Pulse Rate 89 Respiratory 16 Rate Blood Pressure 104/65 [Left] O2 Sat by Pulse 100 Oximetry ED Medical Decision Making - Lab Data Result diagrams: 11/03/19 21:01 11/03/19 21:01 Lab Results 11/03/19 11/03/19 11/03/19 Range/Units 21:01 21:01 21:30 WBC 11.5 H (4.5-11.0) K/mm3 RBC 4.34 (3.65-5.03) M/mm3 Hgb 12.2 (10.1-14.3) gm/dl Hct 36.8 (30.3-42.9) % MCV 85 (79-97) fl MCH 28 (28-32) pg MCHC 33 (30-34) % RDW 15.2 (13.2-15.2) % Plt Count 403 (140-440) K/mm3 Lymph % (Auto) 38.8 H (13.4-35.0) % [place] % (Auto) 5.2 (0.0-7.3) % Eos % (Auto) 1.5 (0.0-4.3) % Baso % (Auto) [place] Lymph # 4.5 (1.2-5.4) K/mm3 [place] # 0.6 (0.0-0.8) K/mm3 Eos # 0.2 (0.0-0.4) K/mm3 Baso # 0.2 H (0.0-0.1) K/mm3 Seg Neutrophils % 53.1 (40.0-70.0) % Seg Neutrophils # 6.1 (1.8-7.7) K/mm3 VBG pH (7.320-7.420) Sodium 131 L (137-145) mmol/L Potassium 4.8 (3.6-5.0) mmol/L Chloride 91.1 L (98-107) mmol/L Carbon Dioxide 17 L (22-30) mmol/L Anion Gap 28 mmol/L BUN 41 H (7-17) mg/dL Creatinine 1.7 H (0.7-1.2) mg/dL Estimated GFR 37 ml/min BUN/Creatinine Ratio 24 % Glucose 309 H (65-100) mg/dL POC Glucose (70-105) Calcium 10.4 H (8.4-10.2) mg/dL Urine Color Colorless (Yellow) Urine Turbidity Clear (Clear) Urine pH 5.0 (5.0-7.0) Ur Specific [place] 1.013 (1.003-1.030) Urine Protein <15 mg/dl (Negative) mg/dL Urine Glucose (UA) >=500 (Negative) mg/dL Urine Ketones Tr (Negative) mg/dL Urine Blood Neg (Negative) Urine Nitrite Neg (Negative) Urine Bilirubin Neg (Negative) Urine Urobilinogen < 2.0 (<2.0) mg/dL Ur Leukocyte Esterase Neg (Negative) Urine WBC (Auto) 1.0 (0.0-6.0) /HPF Urine RBC (Auto) < 1.0 (0.0-6.0) /HPF U Epithel Cells (Auto) < 1.0 (0-13.0) /HPF Urine Bacteria (Auto) 1+ (Negative) /HPF 11/03/19 11/03/19 Range/Units 21:32 23:33 WBC (4.5-11.0) K/mm3 RBC (3.65-5.03) M/mm3 Hgb (10.1-14.3) gm/dl Hct (30.3-42.9) % MCV (79-97) fl MCH (28-32) pg MCHC (30-34) % RDW (13.2-15.2) % Plt Count (140-440) K/mm3 Lymph % (Auto) (13.4-35.0) % [place] % (Auto) (0.0-7.3) % Eos % (Auto) (0.0-4.3) % Baso % (Auto) Lymph # (1.2-5.4) K/mm3 [place] # (0.0-0.8) K/mm3 Eos # (0.0-0.4) K/mm3 Baso # (0.0-0.1) K/mm3 Seg Neutrophils % (40.0-70.0) % Seg Neutrophils # (1.8-7.7) K/mm3 VBG pH 7.360 (7.320-7.420) Sodium (137-145) mmol/L Potassium (3.6-5.0) mmol/L Chloride (98-107) mmol/L Carbon Dioxide (22-30) mmol/L Anion Gap mmol/L BUN (7-17) mg/dL Creatinine (0.7-1.2) mg/dL Estimated GFR ml/min BUN/Creatinine Ratio % Glucose (65-100) mg/dL POC Glucose 128 H (70-105) Calcium (8.4-10.2) mg/dL Urine Color (Yellow) Urine Turbidity (Clear) Urine pH (5.0-7.0) Ur Specific [place] (1.003-1.030) Urine Protein (Negative) mg/dL Urine Glucose (UA) (Negative) mg/dL Urine Ketones (Negative) mg/dL Urine Blood (Negative) Urine Nitrite (Negative) Urine Bilirubin (Negative) Urine Urobilinogen (<2.0) mg/dL Ur Leukocyte Esterase (Negative) Urine WBC (Auto) (0.0-6.0) /HPF Urine RBC (Auto) (0.0-6.0) /HPF U Epithel Cells (Auto) (0-13.0) /HPF Urine Bacteria (Auto) (Negative) /HPF - Medical Decision Making Patient was given IV insulin and 3 L of normal saline. Blood sugar did correct well. Patient be restarted on her Trulicity which is the medication she is out of. Patient also will be started on a short course of antibiotics to try to mitigate her foot infection. Patient be discharged home at this time. Critical care attestation.: If time is entered above; I have spent that time in minutes in the direct care of this critically ill patient, excluding procedure time. ED Disposition Clinical Impression: Hyperglycemia, Dehydration, Cellulitis of foot Disposition: DC-01 TO HOME OR SELFCARE Is pt being admited?: No Does the pt Need Aspirin: No Condition: Stable Instructions: Diabetes Mellitus Type 2 in Adults (ED), Diabetic Foot Care (ED) Referrals: PRIMARY CARE, [Primary Care Provider] - 3-5 Days Time of Disposition: 23:33
[2019-11-04 00:11] VITALS: BP 103/52
== END 2019-11-03 23:30 | disposition home or self-care (01) ==
LOC: ED 20:11
DX: E11.65 Type 2 diabetes mellitus with hyperglycemia (principal); L03.119 Cellulitis of unspecified part of limb; E86.0 Dehydration; I10 Essential (primary) hypertension; E78.00 Pure hypercholesterolemia, unspecified; Z98.890 Other specified postprocedural states; Z79.899 Other long term (current) drug therapy; Z86.73 Personal history of transient ischemic attack (TIA), and cerebral infarction without residual deficits
CPT/HCPCS: 36415; 80048; 81001; 82805; 82962; 85025; 96361; 96374; 96375; 99283; J2405; J7030; J1815

== ENCOUNTER 2020-12-03 15:55 | Emergency (ER) | payer OTHER ==
[2020-12-03] MEDS ORDERED: SODIUM CHLORIDE 0.9% 1000 ML 1,000 ML IV ONE ×2 (17:14→18:27)
--- NOTE | 2020-12-03 17:22 | Emergency Department Report ---
- General Stated complaint: WEAKNESS PUI?: No Time Seen by Provider: 12/03/20 17:13 Source: patient Mode of arrival: Ambulatory Limitations: No Limitations - History of Present Illness Initial comments: CC: "I just feel weak." HPI: THis is a 60 yo female with hx of CVA right sided hemiparesis, IDDM, HTN who presents with generalized weakness. She seemed confused and dazed according to family report to EMS. She had urinary incontinence. BP 80/60 per EMS. BG > 400. Patient has generalized weakness. Symptoms occurred at her PCP's office. Daughter gave history: Navin had HI last month at [facility]. Patient had one cardiac stent. Second stent was unable to be placed due to a minor stroke during hospitalization. Patient still have an 80% blockage in heart which needs intervention. I spoke with daughter who explained that patient had home health evaluation today for PCP. Patient has declined over the past 4 months. Patient needs home health according to daughter. MD Complaint: generalized weakness -: Sudden, This afternoon Location: generalized Severity: severe Consistency: constant Improves with: none Worsens with: none Context: other (no new medication no recent illness) Associated Symptoms: denies other symptoms - Related Data Home Medications Medication Instructions Recorded Confirmed Last Taken Aspirin [Lo-Dose Aspirin EC] 81 mg PO DAILY 10/10/17 11/21/17 10/04/17 Lispro Insulin [HumaLOG] 15 unit SQ BID 10/10/17 11/21/17 10/17/17 16:00 15 units Fluticasone [Flonase] 1 spray NS QDAY 10/18/17 11/21/17 10/18/17 10:30 Previous Rx's Medication Instructions Recorded Last Taken Type Cyclobenzaprine [Flexeril] 10 mg PO TID PRN #10 tablet 06/11/19 Unknown Rx predniSONE [Deltasone] 20 mg PO DAILY #5 tablet 06/11/19 Unknown Rx traMADoL [Ultram] 50 mg PO Q6HR PRN #10 tablet 06/11/19 Unknown Rx AtorvaSTATin [Lipitor] 40 mg PO QHS #30 tablet 07/20/19 Unknown Rx Empagliflozin [Jardiance] 25 mg PO QDAY #30 07/20/19 Unknown Rx Metformin HCl [Glucophage] 1,000 mg PO BID #60 07/20/19 Unknown Rx amLODIPine 10 mg PO DAILY #30 01/04/20 Unknown Rx Clindamycin [Clindamycin CAP] 300 mg PO Q8H #21 cap 11/03/19 Unknown Rx Dulaglutide [Trulicity] 0.75 mg SQ QWEEK #1 pen 11/03/19 Unknown Rx Allergies Allergy/AdvReac Type Severity Reaction Status Date / Time No Known Allergies Allergy Verified 06/04/17 16:39 ED Review of Systems ROS: Stated complaint: WEAKNESS Other details as noted in HPI Comment: All other systems reviewed and negative Constitutional: malaise. denies: fever ENT: denies: epistaxis Respiratory: denies: cough, shortness of breath Cardiovascular: denies: chest pain Gastrointestinal: denies: abdominal pain, nausea, vomiting Neurological: denies: numbness, paresthesias, confusion, abnormal gait, vertigo ED Past Medical Hx - Past Medical History Previous Medical History?: Yes Hx Hypertension: Yes Hx CVA: Yes Hx Heart Attack/AMI: No Hx Congestive Heart Failure: No Hx Diabetes: Yes Hx Deep Vein Thrombosis: No Hx Pulmonary Embolism: No Hx GERD: No Hx Liver Disease: No Hx Renal Disease: No Hx Sickle Cell Disease: No Hx Arthritis: No Hx Headaches / Migraines: No Hx Seizures: No Hx Kidney Stones: No Hx Psychiatric Treatment: No Hx Asthma: No Hx COPD: No Hx Tuberculosis: No Hx Dementia: No Hx HIV: No Additional medical history: high cholesterol. bulging disc L4 & L5. degenerative disc disease - Surgical History Past Surgical History?: Yes Hx Pacemaker: No Hx Internal Defibrillator: No Additional Surgical History: right and left knee surgery - Social History Smoking Status: Never Smoker Substance Use Type: None - Medications Home Medications: Home Medications Medication Instructions Recorded Confirmed Last Taken Type Aspirin [Lo-Dose Aspirin EC] 81 mg PO DAILY 10/10/17 11/21/17 10/04/17 History Lispro Insulin [HumaLOG] 15 unit SQ BID 10/10/17 11/21/17 10/17/17 16:00 History 15 units Fluticasone [Flonase] 1 spray NS QDAY 10/18/17 11/21/17 10/18/17 10:30 History Cyclobenzaprine [Flexeril] 10 mg PO TID PRN #10 tablet 06/11/19 Unknown Rx predniSONE [Deltasone] 20 mg PO DAILY #5 tablet 06/11/19 Unknown Rx traMADoL [Ultram] 50 mg PO Q6HR PRN #10 tablet 06/11/19 Unknown Rx AtorvaSTATin [Lipitor] 40 mg PO QHS #30 tablet 07/20/19 Unknown Rx Empagliflozin [Jardiance] 25 mg PO QDAY #30 07/20/19 Unknown Rx Metformin HCl [Glucophage] 1,000 mg PO BID #60 07/20/19 Unknown Rx amLODIPine 10 mg PO DAILY #30 07/20/19 Unknown Rx Clindamycin [Clindamycin CAP] 300 mg PO Q8H #21 cap 11/03/19 Unknown Rx Dulaglutide [Trulicity] 0.75 mg SQ QWEEK #1 pen 11/03/19 Unknown Rx ED Physical Exam - General Limitations: No Limitations General appearance: alert, in no apparent distress, other (Appears slightly drowsy, GCS 15) - Head Head exam: Present: atraumatic, normocephalic - Eye Eye exam: Present: normal appearance - ENT ENT exam: Present: mucous membranes moist - Neck Neck exam: Present: normal inspection, full ROM - Respiratory Respiratory exam: Present: normal lung sounds bilaterally. Absent: respiratory distress, wheezes, rales, rhonchi - Cardiovascular Cardiovascular Exam: Present: regular rate, normal rhythm, normal heart sounds. Absent: systolic murmur, diastolic murmur, rubs, gallop - GI/Abdominal GI/Abdominal exam: Present: soft, normal bowel sounds. Absent: distended, t enderness, guarding, rebound - Extremities Exam Extremities exam: Present: normal inspection - Neurological Exam Neurological exam: Present: alert, oriented X3, other (Right facial droop at baseline, 4/5 strength right upper 4/5 strength right lower extremity at baseline) - Expanded Neurological Exam Expanded Patient oriented to: Present: person, place, time Speech: Present: fluid speech Cranial nerves: EOM's Intact: Normal Cerebellar function: Finger to Nose: Normal Sensory exam: Upper Extremity Light Touch: Normal Motor strength exam: RUE: 4, LUE: 5, RLE: 4, LLE: 5 Best Eye Response ([place]): (4) open spontaneously Best Motor Response ([place]ora): (6) obeys commands Best Verbal Response (Nora): (5) oriented Nora Total: 15 - Psychiatric Psychiatric exam: Present: normal affect, normal mood - Skin Skin exam: Present: warm, dry, intact, normal color. Absent: rash - Assessment Assessment Interval: Baseline - Level of Consciousness 1a. Level of Consciousness: alert/keenly responsive - LOC Questions 1b. LOC Questions: answers both correctly - LOC Command 1c. LOC Commands: performs tasks correctly - Best Gaze 2. Best Gaze: normal - Visual 3. Visual: no visual loss - Facial Palsy 4. Facial Palsy: minor paralysis - Motor Arm 5a. Motor Arm Left: no drift 5b. Motor Arm Right: drift - Motor Leg 6a. Motor Leg Left: no drift 6b. Motor Leg Right: drift - Limb Ataxia 7. Limb Ataxia: absent - Sensory 8. Sensory: normal - Best Language 9. Best Language: no aphasia - Dysarthria 10. Dysarthria: mild/moderate dysarthria - Extinction and Inattention 11. Extinction/Inattention: no abnormality - Scoring Total Score: 4 Stroke Severity: Minor Stroke ED Course Vital Signs 12/03/20 12/03/20 12/03/20 17:30 17:57 18:00 Temperature 98.6 F Pulse Rate 89 65 68 Respiratory 14 14 15 Rate Blood Pressure 103/65 103/64 O2 Sat by Pulse 98 99 99 Oximetry 12/03/20 12/03/20 18:31 19:01 Temperature Pulse Rate 65 63 Respiratory 16 15 Rate Blood Pressure 109/58 119/68 O2 Sat by Pulse 100 100 Oximetry ED Medical Decision Making - Lab Data Result diagrams: 12/03/20 17:39 12/03/20 17:39 - EKG Data -: EKG Interpreted by Ny EKG shows normal: sinus rhythm, axis Rate: normal - EKG Data 12/03/20 18:36 EKG obtained 1827 EKG interpreted by me Normal sinus rhythm rate 60 bpm normal axis prolonged QTC no ST elevation - Medical Decision Making Generalized weakness due to dehydration. Dehydration caused by poor p.o. intake and persistent hyperglycemia. Patient received IV fluid therapy as well as IV regular insulin. Daughter understands that patient is not capable of taking care of herself without assistance. Patient is currently living with a friend who was not home 24 hours. Daughter is arranging for home health resources. Today was an appointment with PCP for evaluation. Patient has had HI, CVA within the last month. She will require rehabilitation. Kidney function at baseline compared to previous values. No hypotension noted while in the emergency department. Possible orthostasis. Daughter understands plan of care. Patient is discharged home. Critical care attestation.: If time is entered above; I have spent that time in minutes in the direct care of this critically ill patient, excluding procedure time. ED Disposition Clinical Impression: Dehydration, Acute hyperglycemia, Chronic kidney disease Disposition: DC-01 TO HOME OR SELFCARE Is pt being admited?: No Does the pt Need Aspirin: No Condition: Stable Instructions: Dehydration, Adult, [id number], Hyperglycemia, [id number] Referrals: PRIMARY CARE, [Primary Care Provider] - 3-5 Days
[2020-12-03 18:02] LABS: Basophils # (Auto) 0.1 K/mm3 (0.0-0.1); Basophils % (Auto) 0.9 % (0.0-1.8); Eosinophils # (Auto) 0.1 K/mm3 (0.0-0.4); Eosinophils % (Auto) 0.7 % (0.0-4.3); Hematocrit 33.8 % (30.3-42.9); Hemoglobin 10.9 gm/dl (10.1-14.3); Lymphocytes # (Auto) 2.8 K/mm3 (1.2-5.4); Lymphocytes % (Auto) 25.4 % (13.4-35.0); Mean Corpuscular HGB Conc 32 % (30-34); Mean Corpuscular Volume 81 fl (79-97); Monocytes # (Auto) 0.4 K/mm3 (0.0-0.8); Monocytes % (Auto) 3.9 % (0.0-7.3); Platelet Count 305 K/mm3 (140-440); Red Blood Count 4.21 M/mm3 (3.65-5.03); Red Cell Distribution Width 16.7 % (13.2-15.2)
[2020-12-03 18:15] LABS: Alanine Aminotransferase 13 units/L (7-56); BUN/Creatinine Ratio 40; Blood Urea Nitrogen 44 mg/dL (7-17); Calcium 9.5 mg/dL (8.4-10.2); Hemolysis Index 8
[2020-12-03] MEDS ORDERED: INSULIN REGULAR, HUMAN 100 UNITS/1 ML IV ONE (18:27)
[2020-12-03 22:48] VITALS: BP 118/64
--- NOTE | 2020-12-04 10:50 | Electrocardiograph Report ---
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
== END 2020-12-03 22:47 | disposition home or self-care (01) ==
LOC: ED 15:55
DX: E11.22 Type 2 diabetes mellitus with diabetic chronic kidney disease (principal); I12.9 Hypertensive chronic kidney disease with stage 1 through stage 4 chronic kidney disease, or unspecified chronic kidney disease; N18.9 Chronic kidney disease, unspecified; E11.65 Type 2 diabetes mellitus with hyperglycemia; E86.0 Dehydration; Z98.890 Other specified postprocedural states; Z79.899 Other long term (current) drug therapy; Z79.84 Long term (current) use of oral hypoglycemic drugs
CPT/HCPCS: 36415; 80053; 82962; 83735; 84100; 84443; 84484; 85025; 93005; 96361; 96374; 99284; J7030; J1815